=== PATIENT | female | born 1995 | race Caucasian/White ===

== ENCOUNTER 2017-04-18 15:18 | Emergency (ER) | payer OTHER ==
[~2017-04-18] VITALS: Ht 160 cm; Wt 45.5 kg
[~2017-04-18 15:18] MED LIST: IBUP-1542 PO; ONDA4TAB8 PO
[2017-04-18 15:23] VITALS: Ht 160 cm; Wt 45.5 kg
--- NOTE | 2017-04-18 16:29 | ERD ---
ER Documentation Chief Complaint Date/Time DATE: 04/18/17 TIME: 16:23 Chief Complaint AP X 2 MONTHS WITH N/V/D HPI Intermited ABD pain x 2 months. Has been seen recently at [facility] and followed up with her primary care physician. Patient reports that she has a new primary care physician that her physician was moved to another clinic. Patient reports that she is on no medication and has no known food allergies. Patient reports diarrhea described as watery stool times once today , intermittent nausea while eating, denies nausea now. Patient's last menstrual period 04/10/2017 described as spotting patient reports Depo-Provera. Patient denies history of IBS or GERD, reports burning in her epigastric worse at night. Patient reports that she eats a large amount of dairy. ROS All systems reviewed and are negative except as per history of present illness. Medications Home Meds Active Scripts Ranitidine Hcl* (Zantac*) 150 Mg Tablet, 150 MG PO BID Y for EPIGASTRIC PAIN, # 30 TAB Prov:ELIJAH,HOLLAND 04/18/17 Dicyclomine Hcl* (Bentyl*) 10 Mg Capsule, 10 MG PO QID Y for DIARRHEA for 7 Days , #20 CAP Prov:ELIJAH,HOLLAND 04/18/17 Ibuprofen* (Motrin*) 600 Mg Tab, 600 MG PO Q6, #30 TAB Prov:CLIFFORD MORENO 04/12/16 Ondansetron Hcl* (Zofran*) 4 Mg Tablet, 4 MG PO Q6H for NAUSEA AND/OR VOMITING, #30 TAB Prov:CLIFFORD MORENO 04/12/16 Reported Medications [none] No Conflict Check 01/25/13 Allergies Allergies: Coded Allergies: No Known Allergy (Unverified , 04/12/16) PMhx/Soc Medical and Surgical Hx: pt denies Medical Hx, pt denies Surgical Hx Hx Alcohol Use: No Hx Substance Use: No Hx Tobacco Use: No Physical Exam Vitals Vital Signs Date Time Temp Pulse Resp B/P Pulse Ox O2 Delivery O2 Flow Rate FiO2 04/18/17 15:23 98.4 96 18 119/78 96 Vitals stable triage notes reviewed Physical Exam Const: Nourished well-appearing well-hydrated no acute distress Head: Eyes: Normal Conjunctiva PERRLA, EOMI ENT: Normal External Ears, Nose and Mouth. Membranes moist Neck: Resp: Clear to auscultation bilaterally wheezes or rhonchi Cardio: Regular rate and rhythm, no murmurs Abd: Soft, symmetric tympanic to percussion, epigastric tenderness, no Lira point tenderness, patient able to hop up and down like a bunny without deficit, bowel sounds are hyperactive. No CVA tenderness. Skin: Back: Ext: Neur: Awake and alert Psych: Normal Mood and Affect Results 24 hrs Laboratory Tests Test 04/18/17 16:57 Bedside Urine pH (LAB) 6.5 Bedside Urine Protein (LAB) Negative Bedside Urine Glucose (UA) Negative Bedside Urine Ketones (LAB) Negative Bedside Urine Blood Negative Bedside Urine Nitrite (LAB) Negative Bedside Urine Leukocyte Esterase (L Negative Current Medications Medications (Trade) Dose Ordered Sig/Fercho Route PRN Reason Start Time Stop Time Status Last Admin Dose Admin Dicyclomine HCl (Bentyl) 20 mg ONCE ONCE PO 04/18/17 16:30 04/18/17 16:31 DC 04/18/17 16:54 Ranitidine HCl (Zantac) 150 mg ONCE ONCE PO 04/18/17 16:30 04/18/17 16:31 DC 04/18/17 16:53 U hCG negative for evidence of , urinalysis negative for leukocytosis nitrates or microscopic hematuria. This is a normal urinalysis. Procedures/MDM This pleasant 21-year-old female presents to emergency department with her mother for evaluation of intermittent abdominal pain with intermittent diarrhea and nausea 2 months. Patient reports diarrhea stool today, reports she had nausea earlier today while eating denies any nausea now. Patient has no history of food allergies reports eating large amounts of lactose and that she does notice that her stomach hurts after eating dairy. I have low suspicion for acute abdomen, cholecystitis, cholelithiasis, appendicitis, pancreatitis. Patient's history and physical support a differential diagnosis of but not limited to GERD, IBS, gastritis urinary tract infection. U hCG negative for , urinalysis negative for leukocytosis or nitrates negative for infection.. Today's treatment includes Bentyl for abdominal spasms, and Zantac for abdominal burning, instructed to discontinue all dairy described as cheese, milk, ice cream, yogurt. Will be sent home with Yogesh and Wang, instructed to follow-up with her primary care physician in the next 2 weeks keep food journal. Return to emergency department for more than 5 diarrhea stools in 24 hours, bolus vomiting, fever, or inability to tolerate food or liquid. Patient is stable with no new complaints during ER course, clinically there is no current evidence to suggest meningitis, sepsis, acute abdomen, acute coronary syndromes, pulmonary embolism or any other emergent condition appearing to require further evaluation or hospitalization. I feel the patient is stable for discharge at this time. I have discussed results, examination findings, the treatment plan with the patient and family present prior to discharge. Indications for emergent reevaluation, side effects of medication were also discussed. All questions were answered. Patient verbalizes understanding and agrees with plan of care. Departure Diagnosis: Primary Impression: Abdominal cramps Additional Impression: Diarrhea Diarrhea type: unspecified type Qualified Code: R19.7 - Diarrhea, unspecified type Condition: Good Patient Instructions: Diet and Lifestyle Tips for IBS, Food Allergy, What Is IBS? Referrals: [facility] Additional Instructions: Thank you for for coming to [facility] for your care today. Please ask your nurse or provider if you have questions about your care today and do not leave until all your questions have been answered. Please use any medications given as directed and follow-up with your doctor (or the doctor you were referred to) in the next 2-3 days. If you do not have a primary care doctor you may follow up at the [facility] (listed below). You may also use motrin and tylenol as needed for fever and/or pain unless instructed otherwise by your provider or nurse. Indications for more urgent follow-up have been discussed, but you may return to the Emergency Department at ANY time for any worrisome or worsening symptoms. If you have abdominal pain, please know that no test or exam you received is perfect and you should follow up within 8 hours for continued pain. If you had any imaging studies today, such as an X-Ray or CT Scan, these studies will be reviewed later by a radiologist. You will be called if there are important findings that were not identified today, so make sure the contact information you provided at registration is correct. If you received any narcotic pain control medicine today, such as Vicodin, Morphine or Dilaudid, your coordination and judgment may be affected for a number of hours. Please do not drive or operate heavy machinery, and you may want someone to assist you at home. If you were given a prescription for narcotic medication, be aware that it is very addictive- use sparingly and only if necessary. HOLLAND NAVA Apr 18, 2017 16:29
[2017-04-18] MEDS ORDERED: DICYCLOMINE 10 MG CAP PO ONE (16:30)
[2017-04-18] MEDS ORDERED: RANITIDINE 150 MG TAB PO ONE (16:30)
[2017-04-18] MEDS ORDERED: RANI150T9 PO (16:45)
[2017-04-18] MEDS ORDERED: DICY10CA60 PO (16:45)
[2017-04-18 16:51] LABS: URINE BLOOD (Dip) POC Negative (NEGATIVE)
[2017-04-18 17:07] VITALS: BP 121/79; PULSE 72; RESP 17; TEMP 98.1
== END 2017-04-18 17:07 | disposition home or self-care (01) ==
LOC: FTE 15:18
DX: R10.13 Epigastric pain (principal); R19.7 Diarrhea, unspecified
CPT/HCPCS: 81003; Z7502; Z7610; 99283